=== PATIENT | female | born 1960 | race Caucasian/White ===

== ENCOUNTER 2022-12-20 10:26 | Outpatient (CLI) | payer BC, SELFPAY | END 2022-12-20 10:27 | disposition home or self-care (01) | PROVIDERS: PCP Family Medicine; Visit Provider Family Medicine | DX: Z00.00 Encounter for general adult medical examination without abnormal findings (principal); E03.9 Hypothyroidism, unspecified; I10 Essential (primary) hypertension; E78.5 Hyperlipidemia, unspecified | CPT/HCPCS: 80053; 80061; 84443 ==

== ENCOUNTER 2024-04-23 11:24 | Outpatient (CLI) | payer BC, SELFPAY | END 2024-04-23 11:25 | disposition home or self-care (01) | PROVIDERS: PCP Family Medicine; Visit Provider Family Medicine | DX: E03.9 Hypothyroidism, unspecified (principal); I10 Essential (primary) hypertension; E78.5 Hyperlipidemia, unspecified; Z11.59 Encounter for screening for other viral diseases | CPT/HCPCS: 80053; 80061; 82043; 82570; 84443; 86803 ==

== ENCOUNTER 2024-07-17 10:23 | Outpatient (CLI) | payer BC, SELFPAY ==
--- NOTE | 2024-07-17 10:45 | CRLHL7_ITS ---
For Patients: As a result of the Century Cures Act, medical imaging exams and procedure reports are released immediately into your electronic medical record. You may view this report before your referring provider. If you have questions, please contact your health care provider. BILATERAL SCREENING MAMMOGRAM WITH COMPUTER-AIDED DETECTION AND TOMOSYNTHESIS TECHNIQUE: CC and MLO views were obtained. These mammographic images have been obtained using full-field digital technique. These mammographic images were interpreted with the benefit of computer-aided detection. Breast Tomosynthesis was used in this interpretation. COMPARISON FILM: 07/27/21, 07/26/20, 07/22/19. FINDINGS: There are scattered areas of fibroglandular density. IMPRESSION: There is no radiographic evidence for malignancy. ASSESSMENT: BI-RADS Category 1: Negative RECOMMENDATION: Routine screening mammogram in 1 year. A lay language report of this examination will be provided to the patient. Santos Mera M.D. Diagnostic Radiologist [email or web address] SP/Dictated by: Santos Mera MD @ 07/23/2024 10:42:00 AM (Electronically Signed)
== END 2024-07-17 10:24 | disposition home or self-care (01) ==
LOC: MAMMO 10:24
PROVIDERS: PCP Family Medicine; Visit Provider Family Medicine
DX: Z12.31 Encounter for screening mammogram for malignant neoplasm of breast (principal)
CPT/HCPCS: 77063; 77067

== ENCOUNTER 2025-07-06 14:59 | Outpatient (CLI) | payer BC, SELFPAY | END 2025-07-06 15:00 | disposition home or self-care (01) | PROVIDERS: PCP Family Medicine; Visit Provider Family Medicine | DX: E03.9 Hypothyroidism, unspecified (principal); E78.5 Hyperlipidemia, unspecified; I10 Essential (primary) hypertension; L56.8 Other specified acute skin changes due to ultraviolet radiation | CPT/HCPCS: 80053; 80061; 82043; 82306; 82570; 82607; 82728; 84443; 86038 ==

== ENCOUNTER 2025-07-12 11:30 | Outpatient (CLI) | payer BC, SELFPAY | END 2025-07-12 11:31 | disposition home or self-care (01) | LOC: NFLDREF 07-27 04:15 | PROVIDERS: PCP Family Medicine; Referring Provider Family Medicine; Visit Provider Family Medicine | DX: L56.8 Other specified acute skin changes due to ultraviolet radiation (principal); E03.9 Hypothyroidism, unspecified; I10 Essential (primary) hypertension; E78.5 Hyperlipidemia, unspecified | CPT/HCPCS: 84110; 84120 ==

== ENCOUNTER 2025-07-22 14:51 | Outpatient (CLI) | payer BC, SELFPAY ==
--- NOTE | 2025-07-22 15:00 | CRLHL7_ITS ---
For Patients: As a result of the Century Cures Act, medical imaging exams and procedure reports are released immediately into your electronic medical record. You may view this report before your referring provider. If you have questions, please contact your health care provider. INDICATION: BILATERAL SCREENING MAMMOGRAM, ASYMPTOMATIC 65 Y/O FEMALE COMPARISON: 07/17/2024, 07/27/2021, 07/26/2020 TECHNIQUE: Digital mammogram in CC and MLO projections including computer-aided detection (CAD) and tomosynthesis. BREAST COMPOSITION: There are scattered areas of fibroglandular density. FINDINGS: No suspicious findings. ASSESSMENT: BI-RADS 1 Negative RECOMMENDATION: Annual screening mammogram. A lay language report of this examination will be provided to the patient. Dictated by: Santos Mera MD @ 07/23/2025 12:02:58 (Electronically Signed)
== END 2025-07-22 14:52 | disposition home or self-care (01) ==
LOC: MAMMO 14:52
PROVIDERS: PCP Family Medicine; Visit Provider Family Medicine
DX: Z12.31 Encounter for screening mammogram for malignant neoplasm of breast (principal)
CPT/HCPCS: 77063; 77067